=== PATIENT | male | born 1980 | race Caucasian/White ===

== ENCOUNTER 2025-02-15 22:49 | Emergency (ER) | payer OTHER ==
[~2025-02-15] VITALS: Ht 188 cm; Wt 103.0 kg
[2025-02-15 22:56] VITALS: O2SAT 100
[2025-02-15] MEDS ORDERED: LISI40TA21 MT (23:10)
[2025-02-16] MEDS ORDERED: MORPHINE SULFATE 4 MG/ML INJ (FOR IV/IM USE) IV ONE (00:30)
[2025-02-16 00:48] LABS: BASOPHILS % 0.9 % (0.0-2.0); EOSINOPHILS % 1.0 % (0.0-5.0); HEMATOCRIT. 38.7 % (42.0-52.0); HEMOGLOBIN. 13.2 g/dL (14.0-18.0); LYMPHOCYTES % 23.5 % (20.0-50.0); MEAN PLATELET VOLUME 8.5 fl (7.4-10.4); MONOCYTES % 10.6 % (2.0-8.0); NEUTROPHILS % 64.0 % (40.0-76.0); PLATELET 211 x1000/uL (130-400); RED BLOOD CELL COUNT 4.24 mill/uL (4.7-6.1); RED CELL DISTRIBUTION WIDTH 13.8 % (11.6-14.6)
[2025-02-16] MEDS: LORAZEPAM 2MG/ML UD SYRINGE IV NR (01:00)
[2025-02-16] MEDS: ONDANSETRON HCL 4MG/2ML INJ IV ONE (01:00)
[2025-02-16 01:20] LABS: CREATININE 1.0 mg/dL (0.6-1.3); UREA NITROGEN BLOOD 9 mg/dL (9-23)
[2025-02-16 01:21] LABS: TROPONIN I HIGH SENSITIVITY 4 ng/L (3.0-53)
[2025-02-16 01:23] LABS: ASPARTATE AMINOTRANSFERASE 23 IU/L (<34); BILIRUBIN DIRECT 0.2 mg/dL (<=3.0); BILIRUBIN TOTAL 0.8 mg/dL (0.1-1.0); PROTEIN TOTAL 7.2 g/dL (6.0-8.3)
[2025-02-16 03:53] VITALS: BP 158/106; PULSE 90; RESP 16; TEMP 36.6; O2SAT 99
[2025-02-16 05:22] LABS: TROPONIN I HIGH SENSITIVITY 5 ng/L (3.0-53)
== END 2025-02-16 03:55 | disposition home or self-care (01) ==
LOC: ER 22:49
DX: R07.89 Other chest pain (principal); R20.2 Paresthesia of skin; M79.652 Pain in left thigh; R06.02 Shortness of breath; I10 Essential (primary) hypertension; F41.9 Anxiety disorder, unspecified; F17.290 Nicotine dependence, other tobacco product, uncomplicated; Z79.899 Other long term (current) drug therapy
CPT/HCPCS: 99285; 71045; 36415 ×2; 93005; 96374; 96375; 80076; 80048; 83880; 85025; 85379; 84484; J2060; J2405